=== PATIENT | male | born 1960 | race Caucasian/White ===

== ENCOUNTER → 2016-12-04 | Outpatient (CLI) | payer OTHER ==
[2015-05-17 19:24] VITALS: BP 146/69
--- NOTE | 2016-12-04 16:22 | KCIC ---
3 view left knee HISTORY: Left knee pain for 2 months. COMPARISON: None FINDINGS: No bone lesion or acute fracture. Joint spaces are intact. No significant soft tissue abnormality. There may be a small joint effusion. Mild thickening and ill definition of the patellar tendon. IMPRESSION: 1. No evidence of acute fracture or dislocation. 2. Mild ill-definition of the patellar tendon is presumably just artifact, unless there is specific clinical concern for patellar tendon injury. Electronically signed by: Vance Adame MD (12/04/2016 4:19 PM)
== END | disposition home or self-care (01) ==
LOC: KCIC 15:04
PROVIDERS: ATTEND Registered Nurse
DX: M25.562 Pain in left knee (principal)
CPT/HCPCS: 73562